=== PATIENT | female | born 1995 | race Native Hawaiian/Other Pacific Islander ===

== ENCOUNTER 2020-12-20 17:45 | Emergency (ER) | payer BC ==
[~2020-12-20] VITALS: Ht 157.5 cm; Wt 60.3 kg
[2020-12-20 20:16] VITALS: BP 129/76; TEMP 98.8
== END 2020-12-20 20:16 | disposition home or self-care (01) ==
LOC: ED 17:45
DX: O21.9 Vomiting of pregnancy, unspecified (principal); Z3A.08 8 weeks gestation of pregnancy
CPT/HCPCS: 81000; 99284

== ENCOUNTER 2021-07-16 08:02 | Emergency (ER) | payer OTHER ==
[~2021-07-16] VITALS: Ht 157.5 cm; Wt 73.0 kg
[2021-07-16 08:45] VITALS: BP 143/76; TEMP 98
[2021-07-16 08:50] LABS: PLATELET COUNT 198 K/uL (152-353)
[2021-07-16 08:56] LABS: POTASSIUM 3.7 mmol/L (3.6-5.2)
== END 2021-07-16 08:05 | disposition home or self-care (01) ==
LOC: ED 08:02
PROVIDERS: Family Medicine
DX: R51.9 Headache, unspecified (principal); O21.8 Other vomiting complicating pregnancy; Z3A.36 36 weeks gestation of pregnancy
CPT/HCPCS: 36415; 80053; 80307; 81000; 82150; 83690; 85027; 96360; 96374; 96375; 99284; J1200; J2405